=== PATIENT | female | born 1970 | race Two or more races ===

== ENCOUNTER 2018-03-30 16:00 | Emergency (ER) | payer MEDICAID ==
--- NOTE | 2018-03-30 16:59 | EDPHY ---
H & P Time Seen by Provider: 03/30/18 16:23 HPI/ROS: HPI Cough, stuffy nose, headache, fever. 47-year-old female by private vehicle with her friend. This patient reports that for the last 3 days she has had a cough productive of a yellowish clear sputum, clear rhinorrhea with intermittent greenish nasal discharge, sore throat which has now resolved and intermittent fevers as well as intermittent gradual onset frontal headaches. ROS: Constitutional: As above, no chills. No weakness. Eyes: No discharge. No changes in vision. ENT: As above. Respiratory: As above. No shortness of breath. Cardiac: No chest pain, no palpitations. Gastrointestinal: No abdominal pain, no vomiting, no diarrhea. Genitourinary: No hematuria. No dysuria or increased frequency with urination. Musculoskeletal: No back pain. No neck pain. No myalgias or arthralgias. Skin: No rashes. Neurological: No headache. No focal weakness or altered sensation. Past medical history: Asthma, migraine headaches, hypothyroidism. Social history: Nonsmoker. Here with her friend. No alcohol. Physical Exam: General Appearance: Alert, no distress. This patient is responding to questions appropriately and in full sentences. This patient appears well- hydrated and well-nourished. Eyes: Pupils equal and round no pallor or injection. No lid edema, erythema or injection. ENT, Mouth: Mucous membranes are moist. The pharyngeal tissues are unremarkable. No edema or swelling. No asymmetry suggestive of abscess. No erythema or exudates. No stridor on auscultation of her neck. No voice changes. No cervical, submental, submandibular lymphadenopathy. Respiratory: There are no retractions, lungs are clear to auscultation with good air movement bilaterally. Cardiovascular: Regular rate and rhythm. No murmur. Neurological: Motor sensory function is grossly intact. Cranial nerves are normal. Gait is normal. Skin: Warm and dry, no rashes. Musculoskeletal: Neck is supple and nontender. Extremities are symmetrical. All joints range without pain or impingement. Psychiatric: No agitation. No depression. Database: EKG: Imaging: Chest x-ray PA and lateral; the cardiac mediastinal silhouette is unremarkable. No evidence of infiltrate or pneumothorax. Mild peribronchial thickening consistent with bronchitis. No other acute cardiopulmonary disease process noted. Interpreted by me. Procedures: Emergency department course: Triage vital signs reviewed. She is moderately hypertensive. Vital signs otherwise normal. She is afebrile. Chest x-ray to be obtained. Patient consents. 5:00 p.m., patient re-evaluated. Resting comfortably at this time. Results of chest x-ray discussed with her and her friend. Her presentation is consistent with a viral upper respiratory infection and bronchitis. I do not feel that antibiotics are indicated at this time. I discussed this with her. Supportive care with antitussive medication, ibuprofen and follow up with her primary care physician reviewed. She is in agreement with this plan. Return to emergency department precautions were thoroughly reviewed with her. All of her questions were answered. She was discharged in good condition. Differential Diagnosis: The differential diagnosis on this patient includes but is not limited to viral upper respiratory infection, bronchitis. Pneumonia, bacterial sinusitis unlikely. This represents a partial list of diagnoses considered. These considerations are based on history, physical exam, past history, reassessment and diagnostic testing. Smoking Status: Never smoked Constitutional: Initial Vital Signs Temperature (C) 37.2 C 03/30/18 16:08 Heart Rate 84 03/30/18 16:08 Respiratory Rate 18 03/30/18 16:08 Blood Pressure 151/94 H 03/30/18 16:08 O2 Sat (%) 97 03/30/18 16:08 O2 Delivery Mode Room Air Allergies/Adverse Reactions: No Known Allergies Allergy (Unverified 03/30/18 16:13) Home Medications: Medication Instructions Recorded Albuterol [Proventil Inhaler HFA 2 puffs IH Q2-4PRN PRN #1 mdi 03/30/18 (*)] Benzonatate [Tessalon Pearles] 100 mg PO TID #12 cap 03/30/18 Levothyroxine 03/30/18 buPROPion 03/30/18 Medical Decision Making - Diagnostics Imaging Results: Imaging Impressions Chest X-Ray 03/30/18 16:19 Impression: Mild peribronchial thickening which could be related to airways disease/bronchitis versus mild fluid overload. Departure - Departure Disposition: Home, Routine, Self-Care Clinical Impression: Bronchitis, Upper respiratory infection Condition: Good Instructions: Upper Respiratory Infection (ED), Acute Bronchitis (ED) Additional Instructions: Read and follow provided instructions. Follow-up with your primary care physician in 1-2 days for re-evaluation. Ibuprofen dosin mg every 6 hours with meals for the next 3 days only. Take only as needed for pain. Take medication as prescribed for cough. Albuterol inhaler: 1-2 puffs every 2-4 hours as needed for cough, wheezing and shortness of breath. Keep well hydrated. You can also purchase over the counter cough medications such as Robitussin or Dimetapp. Take as directed. Return to the emergency department for worsening symptoms, high fever, worsening cough or difficulty breathing or other serious concerns. Referrals: MELODY PLUNKETT MD [Other] - As per Instructions Prescriptions: Albuterol [Proventil Inhaler HFA (*)] 2 puffs IH Q2-4PRN PRN #1 mdi PRN Reason: Sob/Dyspnea Benzonatate [Tessalon Pearles] 100 mg PO TID #12 cap
[2018-03-30] MEDS ORDERED: BENZONATATE 100 MG CAP PO ONE (17:02)
[2018-03-30] MEDS ORDERED: IBUPROFEN 600 MG TAB PO ONE (17:03)
[2018-03-30 17:18] VITALS: BP 147/84
== END 2018-03-30 17:30 | disposition home or self-care (01) ==
LOC: CED 16:00
DX: J40 Bronchitis, not specified as acute or chronic (principal); J06.9 Acute upper respiratory infection, unspecified
CPT/HCPCS: 71046-PO